=== PATIENT | male | born 1930 | race Caucasian/White ===

== ENCOUNTER → 2016-10-08 | Outpatient (CLI) | payer MEDICARE, OTHER ==
[~2016-10-08] MED LIST: ADV250INH INH; ALLE180T33 PO; ASPI1TAB PO; AZIT250T3 PO; BENZ100C5 PO; CEFU250T PO; CO Q1CAP PO; FLOM5CAP PO; FLUNPOW SC; GLIP5TAB8 PO; GLUCTAB6 PO; MELO15TA4 PO; METF1000 PO; MIDO10TA PO; MUCI600T34 PO; OMEP20CA3 PO; RANI150T PO; REST0.05 OU; SIMV10TA2 PO; SPIR25TA2 PO; SYMB80INH INH; ZINC50TA PO
--- NOTE | 2016-10-08 12:12 | REP ---
Chest x-ray: Two views. History: Abnormal findings of the lung jean. Comparison chest x-ray August 23, 2016. Left hemidiaphragm is elevated. There are several air-fluid levels in the left upper quadrant and left base. Two of these appear to be in the left pleural space consistent with air and fluid in the previously noted pleural fluid collection in the left base seen on CT study August 26, 2016. A catheter was passed into this collection after the CT study. The catheter is no longer apparent. There is pleural thickening surrounding the remainder of the left lung and there is considerable volume loss in the left hemithorax. The right lung remains clear. Pleural angles are sharp. Mild left mediastinal widening is again noted. Impression: Volume loss in the left hemithorax with two intrathoracic air-fluid levels in the left pleural space posteriorly. This may be post instrumentation air. There was a recent pleural drainage catheter in this space. Left mediastinal widening consistent with adenopathy again seen. Right lung remains clear. Signed by Tristin Nieves MD 10/08/2016 01:37 P
== END ==
LOC: M ADAMS 09:22
PROVIDERS: ATTEND Physician Assistant Medical
DX: R91.8 Other nonspecific abnormal finding of lung field (principal); J18.9 Pneumonia, unspecified organism; J90 Pleural effusion, not elsewhere classified

== ENCOUNTER → 2016-11-02 | Outpatient (CLI) | payer MEDICARE, OTHER ==
--- NOTE | 2016-11-02 12:33 | REP ---
CT STUDY OF THE CHEST WITHOUT CONTRAST: HISTORY: Nonspecific abnormal findings of the lung jean. Comparison chest CT study is from August 26, 2016. Comparison is also made with the March 22, 2016 prior study. The patient has a history of prostate malignancy. FINDINGS: Volume loss in the left hemithorax again seen with diffuse moderate to marked pleural rind of thickening encasing the left lung circumferentially. Some of this extends in the major fissure. There is compressive atelectasis extensively in the left lower lobe and lingula. There is a pleural fluid collection in a subpulmonic distribution in the left chest, and this contains several air-fluid levels today. Air-fluid levels were noted within this pleural fluid collection on chest x-ray from October 08, 2016. A chest x-ray from August 29, 2016 shows a percutaneous drainage catheter in this location. This is not present currently. This air may be post instrumentation air. The size of the cavity is essentially unchanged from the most recent prior CT study of August 26, 2016. The upper lobe opacity described in the report of the August 26, [address] study is much improved although there is still some opacity surrounding an air bronchogram in this location. Previously, this opacity measured 5.8 cm in greatest diameter. Currently, the residual opacity measures 1.7 cm. No other new pulmonary parenchymal opacity is seen. Scattered stable mediastinal lymph nodes are noted, unchanged. No bony destructive lesion is appreciated. IMPRESSION: Loculated hydropneumothorax left base with compressive atelectasis in the left lower lobe. The size of this cavity is unchanged. Air-fluid levels were noted on most recent chest x-ray and persist. This may be post instrumentation air. The left lung is encased with a rind of pleural thickening, question mesothelioma. Left upper lobe opacity is improved. No new infiltrate. Signed by Tristin Nieves MD 11/02/2016 12:53 P
== END ==
LOC: M RAD 11:02
PROVIDERS: ATTEND Internal Medicine Pulmonary Disease
DX: J93.9 Pneumothorax, unspecified (principal)

== ENCOUNTER → 2016-11-26 | Outpatient (CLI) | payer MEDICARE, OTHER | LOC: M ADAMS 15:12 | PROVIDERS: ATTEND Physician Assistant Medical | DX: M54.5 Low back pain (principal) ==

== ENCOUNTER → 2016-11-26 | Outpatient (CLI) | payer MEDICARE, OTHER ==
[~2016-11-26] MED LIST changes: +FERR325T3 PO; +TYLE1TAB5 PO; +VITMTA PO
--- NOTE | 2016-11-27 09:30 | REP ---
THORACIC SPINE, TWO VIEWS: HISTORY: Back pain. There is no acute fracture or subluxation. There are old compression fractures of the T10 and T12 vertebral bodies with minimal and mild height loss respectively. The intervertebral discs are normal in height. Osteophytes are present in mid and lower thoracic spine. IMPRESSION: Degenerative change as described above. Signed by David Alvarado MD 11/27/2016 09:33 A
--- NOTE | 2016-11-27 09:36 | REP ---
LUMBAR SPINE, SEVEN VIEWS: HISTORY: Back pain. There is no acute fracture. There are old compression fractures of the T10, T12 and L2 vertebral bodies. The lumbar intervertebral discs are decreased in height. Vacuum phenomenon is present at the L5-S1 level. These findings are consistent with disc degeneration. Osteophytes are present throughout the lumbar spine. There is narrowing of the L4-5 and L5-S1 facet joints with associated sclerosis. There are 3 mm of grade 1 spondylolisthesis of L4 on 5. IMPRESSION: Degenerative change as described above. Signed by David Alvarado MD 11/27/2016 09:39 A
== END ==
LOC: M ADAMS 15:39
PROVIDERS: ATTEND Physician Assistant Medical
DX: M43.16 Spondylolisthesis, lumbar region (principal)

== ENCOUNTER → 2016-12-10 | Outpatient (CLI) | payer MEDICARE, OTHER ==
--- NOTE | 2016-12-10 15:10 | REP ---
CHEST, TWO VIEWS: HISTORY: Cough. COMPARISON: 10/08/2016. There is loss of volume in the left hemithorax. Increased density is present in the left lower lobe consistent with atelectasis or infiltrate. A left-sided pleural effusion and/or pleural thickening are present. The right lung is clear. There has been resolution in the previously noted hydropneumothoraces. The bony structure is intact. IMPRESSION: 1. Left lower lobe atelectasis or infiltrate unchanged compared to the previous study. 2. Left side pleural thickening and/or pleural effusion unchanged compared to the previous study. There has been resolution to the previously noted hydropneumothoraces. Signed by David Alvarado MD 12/10/2016 03:34 P
== END ==
LOC: M ADAMS 14:29
PROVIDERS: ATTEND Physician Assistant Medical
DX: J98.8 Other specified respiratory disorders (principal); R05 Cough
CPT/HCPCS: 71020; 87070; 87077; 87186; 87205; G0463

== ENCOUNTER 2016-12-18 13:25 | Inpatient (IN) | payer MEDICARE, OTHER ==
[~2016-12-18] VITALS: Ht 172.7 cm; Wt 82.1 kg
[~2016-12-18 13:25] MED LIST changes: -FERR325T3 PO; -TYLE1TAB5 PO; -VITMTA PO
[2016-12-18] MEDS ORDERED: OMEP20CA3 PO (13:39)
[2016-12-18] MEDS ORDERED: METF1000 PO (13:39)
[2016-12-18] MEDS ORDERED: FERR325T3 PO (13:39)
--- NOTE | 2016-12-18 14:52 | REP ---
Clinical: Dyspnea and cough. Comparison: 12/10/2016. Findings: Large left pleural effusion with underlying atelectasis/consolidation again noted and similar to prior examination. Mediastinum and cardiac silhouette are incompletely evaluated due to overlying opacities. The right hemithorax appears well aerated and clear. Impression: Large left pleural effusion with atelectasis/consolidations similar to prior examination. Signed by Delfino Gonzáles MD 12/18/2016 02:44 P
[2016-12-18 15:21] LABS: BASO % 0.3 % (0.0-1.0); EOS % 0.2 % (0.0-3.0); LARGE UNSTAINED CELL # 0.1 K/mm3 (0.0-0.4); LARGE UNSTAINED CELL % 0.5 % (0.0-4.0); LYMPH # 0.3 K/mm3 (1.5-4.5); LYMPH % 2.5 % (24.0-44.0); MEAN CORPUSCULAR HEMOGLOBIN 27.4 pg (27.0-33.0); MEAN CORPUSCULAR VOLUME 85.7 fl (80.0-96.0); MONO # 1.2 K/mm3 (0.0-0.8); MONO % 10.4 % (0.0-5.0); NEUTROPHILS # 9.5 K/mm3 (1.8-7.7); NEUTROPHILS % 86.1 % (36.0-66.0); PLATELET COUNT, AUTOMATED 294 k/mm3 (150-450); RED CELL DISTRIBUTION WIDTH 14.2 % (11.5-14.5)
[2016-12-18 15:27] LABS: ALBUMIN 3.5 GM/DL (3.2-5.2); ALBUMIN/GLOBULIN RATIO 0.92 (1.00-1.93); ALKALINE PHOSPHATASE 163 U/L (45-117); ALT/SGPT 28 U/L (12-78); ANION GAP 6 MEQ/L (8-16); AST/SGOT 33 U/L (15-37); BILIRUBIN,DIRECT 0.5 MG/DL (0.0-0.2); BILIRUBIN,TOTAL 1.2 MG/DL (0.2-1.0); BLOOD UREA NITROGEN 21 MG/DL (7-18); CALCIUM LEVEL 8.7 MG/DL (8.8-10.2); CARBON DIOXIDE LEVEL 28 MEQ/L (21-32); CHLORIDE LEVEL 91 MEQ/L (98-107); CREATININE FOR GFR 1.21 MG/DL (0.70-1.30); GLOMERULAR FILTRATION RATE > 60.0 (>35); GLUCOSE, FASTING 191 MG/DL (83-110); SODIUM LEVEL 125 MEQ/L (136-145); TOTAL PROTEIN 7.3 GM/DL (6.4-8.2)
[2016-12-18 15:30] LABS: POTASSIUM SERUM 5.3 MEQ/L (3.5-5.1)
[2016-12-18] MEDS ORDERED: ISOVUE-370 76% 100ML VIAL (Q9967) As Ordered ONE (15:35)
--- NOTE | 2016-12-18 16:07 | REP ---
Clinical: Chest pain with dyspnea. Comparison: Chest CT without contrast dated 11/02/2016. Technique: Axial contrast enhanced images from the thoracic inlet to the upper abdomen using 100 ml Isovue 370 intravenous contrast material with multiplanar re-formations. Findings: Satisfactory enhancement of the pulmonary vasculature is achieved and no filling defects are identified to suggest pulmonary embolus. Diffuse irregular pleural thickening surrounds the entire left hemithorax measuring with a moderate loculated basilar effusion with associated collapse of the left lower lobe and areas of consolidation involving the left upper lobe. The right hemithorax is relatively well aerated although trace right basilar atelectasis cannot be excluded. Mediastinum demonstrates atherosclerotic changes to the thoracic aorta and coronary arteries without aortic aneurysm/dissection, cardiomegaly, or significant pericardial effusion. Musculoskeletal structures are intact. Impression: 1. No evidence for pulmonary embolus. 2. Extensive irregular pleural thickening involving the entire left hemithorax with moderate loculated basilar pleural effusion, consolidation / collapse of the left lower lobe and ill-defined areas of consolidation involving the right upper lobe. Findings appear relatively similar to 11/02/2016. Signed by Delfino Gonzáles MD 12/18/2016 03:58 P
[2016-12-18] MEDS ORDERED: ADV250INH INH (18:13)
[2016-12-18] MEDS ORDERED: VITMTA PO (18:13)
[2016-12-18] MEDS ORDERED: FLOM5CAP PO (18:13)
[2016-12-18] MEDS ORDERED: TYLE1TAB5 PO (18:14)
--- NOTE | 2016-12-18 18:18 | ECGEPIP ---
Stationary ECG Study [facility] - ED Test Date: 2016-12-18 Pat Name: TURNER JERONIMO Department: Room: - Gender: M [employer]ement Rubber: elmer : 1930 Requested By: THEODORA Miguel Order Number: [id number] Reading MD: Sergo Levine Measurements Intervals [place] Rate: 110 P: 28 VA: 212 QRS: -34 QRSD: 86 T: 0 QT: 311 QTc: 421 Interpretive Statements SINUS TACHYCARDIA WITH FIRST DEGREE AV BLOCK LEFT AXIS DEVIATION INC. RBBB ST ELEVATION ANTEROLATERALLY, POSSIBLE ACUTE INFARCT Electronically Signed On 12-18-2016 18:18:30 EDT by Sergo Levine
[2016-12-18] MEDS ORDERED: SODIUM CHLORIDE 0.9% 1000 ML IV ONE (19:15)
[2016-12-18] MEDS ORDERED: ACETAMINOPHEN TAB 650MG DOSE (2X325MG) PO PRN (19:30)
[2016-12-18] MEDS ORDERED: GLUCOSE 4 GM CHEW TABLET PO PRN (19:30)
[2016-12-18] MEDS ORDERED: IPRATROPIUM 0.5MG/ALBUTEROL 2.5MG INH SOL UD 3ML (DUONEB)(J7620) NEB PRN (19:30)
[2016-12-18] MEDS ORDERED: GLUCAGON FOR INJ 1 MG VIAL (J1610) SC PRN (19:30)
[2016-12-18] MEDS ORDERED: ONDANSETRON 4MG/2ML VIAL (J2405) IV PRN (19:30)
[2016-12-18] MEDS ORDERED: DEXTROSE 50% 50 ML SYRINGE IV PRN (19:30)
[2016-12-18 20:25] VITALS: BP 136/92
[2016-12-18] MEDS: HumaLOG INSULIN (NovoLOG) PER UNIT SC SCH (20:58)
[2016-12-18] MEDS: ADVAIR DISKUS 250/50 INH PWD INH SCH (21:00)
[2016-12-18] MEDS: OMEPRAZOLE 20 MG CAP PO SCH (21:07)
[2016-12-18] MEDS: DOCUSATE SODIUM 100 MG CAP PO SCH (21:07)
[2016-12-18] MEDS: SIMVASTATIN 10 MG TAB PO SCH (21:08)
[2016-12-18] MEDS: FERROUS SULFATE 325MG TAB PO SCH (21:08)
[2016-12-18] MEDS: LevoFLOXacin IV 500 MG in APPROPRIATE DILUENT 1 EA IV SCH (21:08)
[2016-12-18 21:15] VITALS: BP 132/82
--- NOTE | 2016-12-18 21:22 | HPEPDOC ---
General Date of Admission Dec 18, 2016 at 18:32 Primary Care Physician: KUSUM ACEVEDO PA-C Attending Physician: HUSSEIN COOPER DO Chief Complaint The patient is a 86-year-old male admitted with a reason for visit of Dyspnea. Source: Patient, Family Severity: Moderate Associated Symptoms: Shortness of breath, Dizziness History of Present Illness PRIMARY CARE PROVIDER: Kusum ROSE in [place] [facility] CHIEF COMPLAINT: SOB, pain in L arm and under L shoulder blade, dizziness HISTORY OF PRESENT ILLNESS: 86-year-old gentleman with past medical history significant for restrictive impairment, nonfunctional hemidiaphragm, history of pneumonia, diastolic congestive heart failure, a two-year history of chronic shortness of breath, recurrent left-sided pleural effusion, history of hemoptysis, history of prostate cancer, diabetes mellitus type 2, coronary artery disease, hypertension, COPD, presents to [facility] ED today for progressively worsening shortness of breath, and new onset left arm pain and left-sided back pain underneath the left shoulder blade. States shortness of breath has been present for around 2 years and is chronic. States he is always short of breath, but he has been getting worse over time. He does report a 10 day history of cough. He is expectorating yellow slimy sputum with no blood in it. In addition, patient reports last night, he began to have pain in his back underneath the left shoulder blade, stabbing in nature, and an 8/10 intensity with no radiation. He also reports that he began to have terrible left upper arm pain in the biceps area earlier in the day yesterday afternoon when having lunch which was also stabbing in nature with no radiation and a 7-8/10 in intensity. States he used to have arm pain in the shoulder before, but never in the arm like this. States arm pain was very scary. Patient's reports that patient normally takes Tylenol once in the morning/afternoon and twice in the evening before bedtime, but yesterday, the patient had taken one Tylenol at 6 PM last night, 2 Tylenol in the evening at 10 PM before bedtime, and woke up around 1:45 AM, and took 2 more Tylenol. states patient became confused and dizzy afterward. He normally does not take this much Tylenol. Although patient took extra Tylenol, he reports that this did not help his pain much. In addition, states that patient does not do a lot of walking around because he becomes short of breath on exertion. Also states that patient's blood pressure has been up since last time he saw his auditing clerk which was around 2 months ago. Patient is also admitted that he has gained around 12 pounds. Upon review of systems, patient denied fevers, chills, chest pain, abdominal pain, nausea, vomiting, diarrhea, constipation, hematochezia, hematuria, dizziness, runny nose, orthopnea, blurry vision, or weakness in the arms. Admits to paroxysmal nocturnal dyspnea, swelling left ankle and leg greater than the right leg, a dry throat, weakness in the legs, shortness of breath with exertion. 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 Diaz pulmonology. Restrictive impairment History of pneumonia Diastolic congestive heart failure Diabetes mellitus type 2 Coronary artery disease Hypertension Hypertensive heart disease Prostate cancer in 2009 status post treatment with radiation Fall with compression fracture of the back GERD Questionable hypercholesterolemia PAST SURGICAL HISTORY: Appendectomy Tonsillectomy and adenoidectomy Prostate biopsy with radiation seed implants of the prostate Bilateral upper tunnel release Total right knee replacement Cardiac catheterization for 2014 Right fifth finger tendon repair HOME MEDICATIONS: Aspirin 81 mg by mouth daily CoQ10 100 mg by mouth daily. Ferrous sulfate 300 mg twice a day Fluticasone propionate 50 g/actuation 2 sprays each nostril every night at bedtime Gabapentin 300 mg twice a day Glipizide ER 5 mg 1/2 tablet a day Glucosamine 1500 mg one by mouth daily Meloxicam 15 mg by mouth daily Metformin 1000 mg by mouth daily Omeprazole 20 mg by mouth twice a day Oxybutynin chloride ER 50 mg daily Ranitidine 150 mg by mouth twice a day Restasis 0.05% 1 drop both eyes twice a day Simvastatin 10 mg daily Tamsulosin 0.4 mg every day Zinc 50 mg daily Multivitamin daily one every day Midodrine 10 mg 1 tablet 3 times a day Summer 24-hour 180 mg 1 tablet daily Symbicort 80/4.5 g actuation 2 puffs twice a day Advair diskus 250/50 one puff twice a day ALLERGIES: No known seasonal or drug allergies SOCIAL HISTORY: Occupation: 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 Has been in the [place] where he did shore duty at [place] and went to the [place]. Has also traveled to [place], [place], [facility], and [place] in the past. Has no recent pets other than a kitten, which he bought for his last year. Has had dogs, cats, goats. Used to feed Cardinal birds through a bird feeder, but no physical contact with birds. He has traveled to the [facility] [place] [facility] [place] in the past. He has had no recent sick contacts and no recent travel. Patient has been a lifelong smoker nonsmoker. Denies alcohol use and denies illicit drug use. Drinks 2 cups of coffee daily. Lives at home and [place] with his . Used to live in [place] during the winter months. His , [place], and his son, Karlos , are his primary and secondary healthcare proxies. He does have a MOLST form completed with an active DNR. FAMILY HISTORY: Father at age 81 from a heart issue/possible myocardial infarction. Mother at the age of 101 of old age. One brother had colon cancer 2. Another brother had " a blood clot in his heart" which he had from after gallbladder surgery (cholecystectomy). One sister had an unknown blood cancer she from. Has 3 sons and 3 daughters who are healthy. CODE STATUS: DNR and has a MOLST form. REVIEW OF SYSTEMS: All other review of systems were negative except for those stated above in HPI. PHYSICAL EXAMINATION: Initial ED Vitals: T: 98.4 (later, 100.3), BP: 101/65, (later 91/57), RR:24, P :117 (later, 108), O2 Saturation: 94% RA General: Pleasant and cooperative elderly male who is resting in bed in mild distress. He does seem to look tachypneic seems to be using some accessory muscles to breathe. HEENT: Head: [normocephalic, atraumatic]. Eyes: [PERRL, sclera are nonicteric] , a little hard of hearing. Nose: [No external lesions] Throat: [no pharyngeal erythema or exudates, moist buccal mucosa], Neck: No cervical lymphadenopathy bilaterally. No thyromegaly. Respiratory: Decreased breath sounds in all lung jean left greater than right , crackles appreciated in the left middle and lower lung jean > than right lung jean, fibrotic rales appreciated in all lung jean. Cardiovascular: [regular rhythm, tachycardic rate with no murmurs, rubs or gallops.] Abdomen: [soft, nontender, nondistended, no hepatosplenomegaly appreciated. Bowel sounds present.] Extremities: Positive left ankle edema and left lower extremity edema greater than right Neurological: No focal neurologic deficits appreciated bilaterally. Integumentary: [skin free from rashes, lesions, abrasions] Vascular: +2 radial pulses bilaterally. LABORATORY DATA: Please see below. Laboratory blood cell count 11 Red blood cell count 3.91 Hemoglobin 10.7 Hematocrit 30.5 Sodium 125 Potassium 5.3 Chloride 91 CO2 28 Anion gap 6 BUN 21 Creatinine 1.21 GFR greater than 60 Fasting glucose 191 Lactic acid 1.7 Calcium 8.7 Total protein 7.3 Albumin 2.5 Total bilirubin 1.2 Direct bilirubin 0.5 Alkaline Phosphatase 163 Total creatinine kinase 75 CK-MB 2.9 Troponin I less than 0.02 MICROBIOLOGY: Influenza virus type a and B antigens: Negative Blood cultures pending Sputum Cultures and Gram stain, Sputum Cytology pending. ELECTROCARDIOGRAM: Sinus tachycardia with first-degree AV block at a ventricular rate of 110 bpm Marked left axis deviation Possible right ventricular conduction delay AL interval: 212 ms QRS duration: 86 ms QTC intraoral: [address] segment changes from prior EKG on 08/26/2016 RADIOLOGY: Portable chest x-ray: Shows a large left pleural effusion with atelectasis/ consolidations similar to prior exam on 12/10/2016. Chest CT Angio without contrast: No evidence for pulmonary embolus. Extensive irregular pleural thickening involving the entire left hemithorax with moderate loculated basilar pleural effusion, consolidation/collapse of the left lower lobe and ill defined areas of consolidation involving the right upper lobe. Findings appear similar to 11/02/[address] without contrast. ASSESSMENT: 86-year-old male presenting for progressively worsening dyspnea most likely secondary to chronic left nonfunctional hemidiaphragm with recurrent left lung chronic pleural effusion, atypical chest pain associated with left sided arm pain and left back pain underneath shoulder blade. In addition, presents with leukocytosis of 11, hemoglobin of 10.7, hematocrit 33.5, hyponatremia with sodium of 125, hyperkalemia with potassium of 5.3, hyperglycemia with fasting glucose of 191. First troponin negative 1. PLAN: Atypical chest pain associated with left arm pain and back pain beneath left shoulder: We'll admit to telemetry, monitor, and cycle troponins every 8 hours. First troponin was negative in the ED. EKG showed normal acute changes or significant ST wave changes from prior. We will follow daily BMPs, magnesium levels and CBCs. Shortness of breath secondary to chronic trapped lung/nonfunctional hemidiaphragm with recurrent left pleural effusion: We'll admit to PCU per Dr. Rose and monitor on telemetry. Have consulted Dr. Poncho Shearer cardiothoracic surgery for further evaluation and management. Appreciate his input. Hx of COPD/Possible COPD Exacerbation: We'll give nebulized DuoNeb's breathing treatments as per respiratory therapy, supplemental oxygen and titrate that to 88-92%, give bronchodilators. Add Acapella for expectorating secretions as per respiratory therapy. Antibiotic tx with IV Levaquin. We will follow up blood cultures and sputum cultures as well as sputum cytology. Hyponatremia: We'll give 500 mL bolus IV fluids and attempt to resolve low sodium level as well as soft blood pressure and emergency Department. IV fluids will also aid in hyperkalemia and diluting potassium. Monitor daily BMPs. Hyperkalemia: We'll hold off on adding Kayexalate since patient's potassium might correct after adding IV fluids. Monitor daily BMPs. History of CHF diastolic dysfunction: Monitor daily weights, I's and O's, attempt to keep potassium > 4 and magnesium > 2, replete electrolytes as necessary. Continue home medications. GERD: Continue home medication ranitidine and omeprazole Diabetes mellitus type 2: We'll discontinue metformin, glipizide, and hold other oral hypoglycemics. We'll add insulin sliding scale and before meals/at bedtime. We'll follow fingersticks before meals and at bedtime. We'll monitor daily BMPs. Hypertension: We'll continue home medications Coronary artery disease: Continue aspirin 81 mg daily, Continue simvastatin. Chronic anemia: Continue to follow CBCs daily. Continue ferrous sulfate 325 mg daily. Continue to monitor H&H. Continue home medications. DVT prophylaxis: Lovenox CODE STATUS: DNR, has MOLST form. Disposition: Admit as inpatient. Anticipate staying > 2 midnights. My preceptor for this patient encounter was Dr. Hussein Cooper, and was physically present in the building during the encounter and was fully available. As needed, all aspects of the patient interview, examination, medical decision making process, and medical care plan development were reviewed and approved by the preceptor. Preceptor is aware and concurs with the plan as stated in the body of this note and will attest to such by his/her cosignature. Home Medications Scheduled (Glucosamine Chondroitin) 1 Tab Tab 1 TAB PO DAILY (Reported) (Co Q-10) 100 Mg Cap 100 MG PO DAILY (Reported) (Restasis) 0.05 % Emu 1 DROP OU BID (Reported) Aspirin (Aspirin 81) 81 Mg Tab 81 MG PO QPM (Reported) Ferrous Sulfate (Ferrous Sulfate) 325 Mg Tab 325 MG PO BID (Reported) Fexofenadine Hydrochloride (Summer Allergy) 180 Mg Tab 180 MG PO DAILY ( Reported) Glipizide (Glipizide) 5 Mg Tab 2.5 MG PO DAILY (Reported) Meloxicam (Meloxicam) 15 Mg Tab 15 MG PO DAILY (Reported) Metformin Hydrochloride (Metformin HCl) 1,000 Mg Tab 1,000 MG PO BID (Reported ) Midodrine HCl (Midodrine HCl) 10 Mg Tab 10 MG PO TID (Reported) Multivitamins *[facility] STOCKED* (Thera M Plus *[facility] STOCKED*) 1 Tab Tab 1 TAB PO DAILY (Reported) Omeprazole (Omeprazole) 20 Mg Cap 20 MG PO BID (Reported) Ranitidine HCl (Ranitidine HCl) 150 Mg Tab 1 TAB PO DAILY (Reported) Salmeterol/Fluticasone (Advair Diskus 250-50 Mcg/Dose) 14 Puff/Inhaler Aerp 1 PUFF INH BID (Reported) Simvastatin (Simvastatin) 10 Mg Tab 10 MG PO QHS (Reported) Spironolactone (Spironolactone) 25 Mg Tab 12.5 MG PO DAILY (Reported) pt states forgets to take everyday, did not take today 12/18 Tamsulosin Hydrochloride (Flomax) 0.4 Mg Cap 1 CAP PO DAILY (Reported) once daily 1/2 hour following the same meal each day Zinc (Zinc) 50 Mg Tab 50 MG PO DAILY (Reported) Scheduled PRN (Tylenol Pm Extra Strength 500-25 mg) 1 Tab Tab 2 TAB PO QHS PRN PRN SLEEP ( Reported) Allergies Coded Allergies: No Known Allergies (Unverified , 03/20/16) Vital Signs As above. Laboratory Data Labs 24H Laboratory Tests 2 12/18/16 14:52: Aspartate Amino Transf (AST/SGOT) 33, Alanine Aminotransferase (ALT/SGPT) 28, Alkaline Phosphatase 163H, Total Bilirubin 1.2H, Direct Bilirubin 0.5H, Albumin 3.5, Albumin/Globulin Ratio 0.92L, Anion Gap 6L, White Blood Count 11.0H, Red Blood Count 3.91L, Hemoglobin 10.7L, Hematocrit 33.5L, Mean Corpuscular Volume 85.7, Mean Corpuscular Hemoglobin 27.4, Mean Corpuscular Hemoglobin Concent 32.0 , Red Cell Distribution Width 14.2, Platelet Count 294, Neutrophils (%) (Auto) 86.1H, Lymphocytes (%) (Auto) 2.5L, Monocytes (%) (Auto) 10.4H, Eosinophils (%) (Auto) 0.2, Basophils (%) (Auto) 0.3, Neutrophils # (Auto) 9.5H, Lymphocytes # ( Auto) 0.3L, Monocytes # (Auto) 1.2H, Eosinophils # (Auto) 0.0, Basophils # (Auto ) 0.0, Calcium Level 8.7L, Creatine Kinase MB 2.9, Creatine Kinase MB Relative Index 3.86, Glomerular Filtration Rate > 60.0, Lactic Acid Level 1.7, Large Unclassified Cells # 0.1, Large Unclassified Cells % 0.5, Total Creatine Kinase 75, Total Protein 7.3, Troponin I < 0.02 12/18/16 19:49: Creatine Kinase MB 2.4, Creatine Kinase MB Relative Index 3.69, Total Creatine Kinase 65, Troponin I < 0.02 12/18/16 20:55: Bedside Glucose (Misc Panel) 176H CBC/BMP Laboratory Tests 12/18/16 14:52 Red Blood Count 3.91 L, Mean Corpuscular Volume 85.7, Mean Corpuscular Hemoglobin 27.4, Mean Corpuscular Hemoglobin Concent 32.0, Red Cell Distribution Width 14.2, Neutrophils (%) (Auto) 86.1 H, Lymphocytes (%) (Auto) 2.5 L, Monocytes (%) (Auto) 10.4 H, Eosinophils (%) (Auto) 0.2, Basophils (%) ( Auto) 0.3, Neutrophils # (Auto) 9.5 H, Lymphocytes # (Auto) 0.3 L, Monocytes # ( Auto) 1.2 H, Eosinophils # (Auto) 0.0, Basophils # (Auto) 0.0 Microbiology Microbiology 12/18/16 Blood Culture, Received Pending 12/18/16 Gram Stain, Received Pending 12/18/16 Sputum Culture, Received Pending 12/18/16 Influenza Virus Type A Antigen - Final, Complete 12/18/16 Influenza Virus Type B Antigen - Final, Complete Plan / VTE VTE Prophylaxis Ordered?: Yes (Lovenox, Renal Fx intact) Plan Plan Attending Note: Discussed with Resident. Patient examined independently and agree with treatment as outlined. TC CADE OGME-1 Dec 18, 2016 21:22 HUSSEIN COOPER DO Dec 19, 2016 18:36
[2016-12-18] MEDS: IPRATROPIUM 0.5MG/ALBUTEROL 2.5MG INH SOL UD 3ML (DUONEB)(J7620) NEB SCH (23:41)
[2016-12-19] VITALS: BP 115/79
[2016-12-19 04:00] VITALS: BP 131/90
[2016-12-19 04:15] LABS: MEAN CORPUSCULAR HEMOGLOBIN 27.2 pg (27.0-33.0); MEAN CORPUSCULAR HGB CONC 32.4 g/dl (32.0-36.5); MEAN CORPUSCULAR VOLUME 83.7 fl (80.0-96.0); RED CELL DISTRIBUTION WIDTH 14.5 % (11.5-14.5); WHITE BLOOD COUNT 7.3 K/mm3 (4.0-10.0)
[2016-12-19 04:40] LABS: ANION GAP 10 MEQ/L (8-16); BLOOD UREA NITROGEN 21 MG/DL (7-18); CALCIUM LEVEL 8.1 MG/DL (8.8-10.2); CARBON DIOXIDE LEVEL 26 MEQ/L (21-32); CHLORIDE LEVEL 92 MEQ/L (98-107); CREATININE FOR GFR 1.17 MG/DL (0.70-1.30); GLOMERULAR FILTRATION RATE > 60.0 (>35); GLUCOSE, FASTING 144 MG/DL (83-110); MAGNESIUM LEVEL 1.7 MG/DL (1.8-2.4); POTASSIUM SERUM 4.7 MEQ/L (3.5-5.1); SODIUM LEVEL 128 MEQ/L (136-145)
[2016-12-19] MEDS: TAMSULOSIN 0.4 MG CAP PO SCH (07:52)
[2016-12-19] MEDS: FAMOTIDINE 20 MG TAB PO SCH (07:52)
[2016-12-19] MEDS: OMEPRAZOLE 20 MG CAP PO SCH ×2 (07:52→20:57)
[2016-12-19] MEDS: MIDODRINE 5 MG TAB PO SCH ×3 (07:53→15:57)
[2016-12-19] MEDS: FEXOFENADINE 60 MG TAB PO SCH (07:53)
[2016-12-19] MEDS: FERROUS SULFATE 325MG TAB PO SCH ×2 (07:53→20:57)
[2016-12-19] MEDS: ASPIRIN 81 MG ENTERIC TAB PO SCH (07:53)
[2016-12-19] MEDS: DOCUSATE SODIUM 100 MG CAP PO SCH ×2 (07:53→20:57)
[2016-12-19] MEDS: MULTIVITAMINS/MINERALS THERAP 1 TAB PO SCH (07:53)
[2016-12-19] MEDS: ENOXAPARIN 30 MG/0.3 ML SYR (J1650) SC SCH (07:54)
[2016-12-19] MEDS: HumaLOG INSULIN (NovoLOG) PER UNIT SC SCH ×4 (07:54→21:00)
[2016-12-19 08:00] VITALS: BP 124/81
[2016-12-19] MEDS: IPRATROPIUM 0.5MG/ALBUTEROL 2.5MG INH SOL UD 3ML (DUONEB)(J7620) NEB SCH ×3 (08:00→23:56)
[2016-12-19] MEDS: ADVAIR DISKUS 250/50 INH PWD INH SCH ×2 (08:19→20:10)
--- NOTE | 2016-12-19 08:59 | IPNPDOC ---
Subjective Date Seen The patient was seen on 12/19/16. Subjective Chief Complaint/HPI The patient is a 86-year-old male admitted with a reason for visit of Dyspnea. Events since last encounter Pt states he is feeling better today. Still with SOB. Denies CP, Abd pain. Constitutional: Denies: Chills, Fever Pulmonary: Reports: Cough, Dyspnea Cardiovascular: Denies: Chest Pain, Palpitations Gastrointestinal: Denies: Abdominal Pain, Nausea, Vomiting Objective Physical Examination General Exam: Positive: Alert, No Acute Distress Neck Exam: Positive: Supple, Negative: JVD Chest Exam: Positive: Diminished (Left > Right), Rales, Wheezing Heart Exam: Positive: Rate Normal, Regular Rhythm Abdomen Exam: Positive: Normal bowel sounds, Soft, Negative: Tenderness Extremity Exam: Negative: Edema Assessment /Plan Problems (1) Dyspnea Status: Acute Problem Specific Plan: Consult Specialist, Monitor Clinically Problem Text: 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 Dr Shearer consulted. Cardiac enzymes negative. Getting nebs for COPD. Started on IV Levaquin. 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 Dr Shearer consulted. (3) COPD (chronic obstructive pulmonary disease) Status: Acute Problem Specific Plan: Monitor Clinically Problem Text: Getting nebs for COPD. On Advair. (4) Hyponatremia Status: Acute Problem Specific Plan: Monitor Clinically, Repeat Labs Problem Text: Na 128 (125 yesterday). Received fluid bolus at admission. (5) Hyperkalemia Status: Acute Problem Specific Plan: Monitor Clinically, Repeat Labs Problem Text: K 4.7 today. (6) Hypomagnesemia Status: Acute Problem Specific Plan: Monitor Clinically, Repeat Labs Problem Text: Mag 1.7. Give replacement. (7) CHF (congestive heart failure) Status: Chronic Problem Specific Plan: Monitor Clinically, Repeat Labs Problem Text: Appears compensated. Monitor fluid status. (8) GERD (gastroesophageal reflux disease) Status: Chronic Problem Specific Plan: Monitor Clinically Problem Text: On prilosec. (9) CAD (coronary artery disease) Status: Chronic Problem Specific Plan: Monitor Clinically Problem Text: On Aspirin and statin. (10) Anemia Status: Acute Problem Specific Plan: Monitor Clinically, Repeat Labs Problem Text: Hgb 9.7 today (was 10.7 yesterday). Did receive fluids. On Ferrous sulfate. (11) Diabetes mellitus type 2 in nonobese Status: Chronic Problem Specific Plan: Monitor Clinically, Repeat Labs Problem Text: On SSI. Outpt metformin, glipizide held. (12) Hypertension Status: Chronic Problem Specific Plan: Monitor Clinically Plan/VTE VTE Prophylaxis Ordered?: Yes (Lovenox) VS, I&O, 24H, Fishbone Vital Signs/I&O Vital Signs Date Time Temp Pulse Resp B/P Pulse Ox O2 Delivery O2 Flow Rate FiO2 12/19/16 08:00 98.9 118 20 124/81 94 Room Air I&O- Last 24 Hours up to 6 AM 12/19/16 06:00 Intake Total 800 ml Output Total 225 ml Balance 575 ml Laboratory Data 24H LABS Laboratory Tests 2 12/18/16 14:52: Aspartate Amino Transf (AST/SGOT) 33, Alanine Aminotransferase (ALT/SGPT) 28, Alkaline Phosphatase 163H, Total Bilirubin 1.2H, Direct Bilirubin 0.5H, Albumin 3.5, Albumin/Globulin Ratio 0.92L, Anion Gap 6L, White Blood Count 11.0H, Red Blood Count 3.91L, Hemoglobin 10.7L, Hematocrit 33.5L, Mean Corpuscular Volume 85.7, Mean Corpuscular Hemoglobin 27.4, Mean Corpuscular Hemoglobin Concent 32.0 , Red Cell Distribution Width 14.2, Platelet Count 294, Neutrophils (%) (Auto) 86.1H, Lymphocytes (%) (Auto) 2.5L, Monocytes (%) (Auto) 10.4H, Eosinophils (%) (Auto) 0.2, Basophils (%) (Auto) 0.3, Neutrophils # (Auto) 9.5H, Lymphocytes # ( Auto) 0.3L, Monocytes # (Auto) 1.2H, Eosinophils # (Auto) 0.0, Basophils # (Auto ) 0.0, Calcium Level 8.7L, Creatine Kinase MB 2.9, Creatine Kinase MB Relative Index 3.86, Glomerular Filtration Rate > 60.0, Lactic Acid Level 1.7, Large Unclassified Cells # 0.1, Large Unclassified Cells % 0.5, Total Creatine Kinase 75, Total Protein 7.3, Troponin I < 0.02 12/18/16 19:49: Creatine Kinase MB 2.4, Creatine Kinase MB Relative Index 3.69, Total Creatine Kinase 65, Troponin I < 0.02 12/18/16 20:55: Bedside Glucose (Misc Panel) 176H 12/19/16 03:58: Anion Gap 10, Calcium Level 8.1L, Creatine Kinase MB 2.0, Creatine Kinase MB Relative Index 3.38, Glomerular Filtration Rate > 60.0, Total Creatine Kinase 59 , Troponin I 0.02, Blood Urea Nitrogen 21H, Creatinine 1.17, Sodium Level 128L, Potassium Level 4.7, Chloride Level 92L, Carbon Dioxide Level 26, Magnesium Level 1.7L 12/19/16 07:37: Bedside Glucose (Misc Panel) 125H CBC/BMP Laboratory Tests 12/18/16 14:52 Red Blood Count 3.91 L, Mean Corpuscular Volume 85.7, Mean Corpuscular Hemoglobin 27.4, Mean Corpuscular Hemoglobin Concent 32.0, Red Cell Distribution Width 14.2, Neutrophils (%) (Auto) 86.1 H, Lymphocytes (%) (Auto) 2.5 L, Monocytes (%) (Auto) 10.4 H, Eosinophils (%) (Auto) 0.2, Basophils (%) ( Auto) 0.3, Neutrophils # (Auto) 9.5 H, Lymphocytes # (Auto) 0.3 L, Monocytes # ( Auto) 1.2 H, Eosinophils # (Auto) 0.0, Basophils # (Auto) 0.0 12/19/16 03:58 Red Blood Count 3.58 L, Mean Corpuscular Volume 83.7, Mean Corpuscular Hemoglobin 27.2, Mean Corpuscular Hemoglobin Concent 32.4, Red Cell Distribution Width 14.5, Calcium Level 8.1 L, Total Creatine Kinase 59 Microbiology Microbiology 12/18/16 Blood Culture, Received Pending 12/18/16 Gram Stain, Received Pending 12/18/16 Sputum Culture, Received Pending 12/18/16 Influenza Virus Type A Antigen - Final, Complete 12/18/16 Influenza Virus Type B Antigen - Final, Complete Jude Hammonds Dec 19, 2016 08:59
[2016-12-19] MEDS ORDERED: MAG SULF 1GM/100ML (MAG RUN) 1 GM in APPROPRIATE DILUENT 1 EA IV ONE (09:00)
--- NOTE | 2016-12-19 10:07 | REP ---
Clinical: Pleural effusion. Technique: PA and lateral. Comparison: 12/18/2016. Findings: Continued evidence for diffuse pleural thickening of the left hemithorax with moderate to large left pleural effusion and underlying consolidations which are relatively stable compared to prior examination. The right hemithorax appears clear. Skeletal structures intact. Impression: Diffuse pleural thickening with moderate to large left pleural effusion and underlying consolidations unchanged. Signed by Delfino Gonzáles MD 12/19/2016 09:59 A
[2016-12-19 12:00] VITALS: BP 127/81
[2016-12-19 16:00] VITALS: BP 147/74
--- NOTE | 2016-12-19 18:24 | CR ---
DATE OF CONSULTATION: 12/19/2016 REASON FOR CONSULTATION: The patient is seen at the request of both the emergency room and the hospitalist service, Dr. Chawla, for recurrent pleural effusion and shortness of breath. HISTORY OF PRESENT ILLNESS: The patient is an 86-year-old white male who was last seen in August with shortness of breath and a pleural effusion. Accompanying this shortness of breath and pleural effusion was hemoptysis with a chronic cough, which came in paroxysms. At the time, it was noted that he coughs every time he swallowed water. He was having chest pain at that time along his left axilla and along his left chest wall. At that time it was a sharp pain, which hurt with taking a deep breath. He has been short of breath for at least 2 years. He was drained of fluid with a pigtail catheter. 200 mL of fluid was drained in x-ray. The cytology and cell blocks were negative for malignancy. The fluid came back with an LDH of 104 with a serum LDH of 160, making it mildly exudative with a glucose of 149 and with less than 20 nucleated cells. Therefore, it looked as if it represented a mildly exudative or perhaps transudative effusion. After the effusion was drained, the lung did not reexpand to the chest wall and looked to be entrapped. He was also noted to have pleural thickening throughout the remainder of his pleura, both on the chest wall and mediastinum. Over the last 3 to 4 days, he has again become progressively short of breath. He also had increased pain along his chest wall, but this is not exacerbated with taking a deep breath. He does not have orthopnea or paroxysmal nocturnal dyspnea, but does occasionally sleep in a recliner secondary to chronic back pain. His sleeping in a recliner is not secondary to shortness of breath. He has had an exacerbation of his cough with yellow-green sputum production but no blood. At home, he has had no fever, chills or sweats, and he has been able to maintain his weight. He does not complain of dysphagia and he now denies choking on water when he swallows. PAST MEDICAL ILLNESSES: 1. Chronic obstructive pulmonary disease (COPD). 2. Diabetes. 3. Diastolic congestive heart failure (CHF). 4. Coronary artery disease. 5. Hypertension. 6. Compression fractures of the back after falling off a combine in the remote past. 7. Gastroesophageal reflux disease (GERD). PAST SURGERIES: 1. Appendectomy in the remote past. 2. Knee replacement. 3. Bilateral carpal tunnel. ALLERGIES: None. MEDICATIONS AT HOME: - aspirin 81 mg daily - ferrous sulfate 325 mg daily - fluconazole two sprays in each nostril at night - gabapentin 300 mg twice a day - glipizide ER 2.5 mg daily - glucosamine 1500 mg daily - meloxicam 15 mg daily - metformin 1000 mg daily - omeprazole 20 mg twice a day - oxybutynin ER 50 mg daily - ranitidine 150 mg twice a day - Restasis one drop both eyes twice a day - simvastatin 10 mg daily - tamsulosin 0.4 mg daily - zinc 50 mg daily - multivitamin one daily - midodrine 10 mg three times a day - Summer 180 mg daily - Symbicort 84.5 mg two puffs twice a day - Advair Diskus 250/50 one puff twice a day ALLERGIES: None. OCCUPATIONAL HISTORY: Was a [place]. He denies asbestos exposure. 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 He does not think that he was exposed to asbestos. TRAVEL HISTORY: He has been to [place], [place] and [place]. He has positive travel history to the [facility] and [facility] in the remote past. He has one cat at home. No dogs or birds presently. HABITS: Does not and has not smoked. No alcohol use and no illicit drugs. FAMILY HISTORY: Father at 81 from myocardial infarction and mother at 101 of "old age." REVIEW OF SYSTEMS: CONSTITUTIONAL: See history of present illness. EYES: Without diplopia. Without transmonocular blindness. Without prior jaundice. NOSE: Without epistaxis. MOUTH: Has his own teeth. PULMONARY: See history of present illness. CARDIAC: See history of present illness. Does note peripheral edema but no orthopnea or paroxysmal nocturnal dyspnea. No prior history of myocardial infarction. There is no intermittent claudication. GASTROINTESTINAL: Without nausea, vomiting, diarrhea, constipation, melena, hematochezia, hematemesis or abdominal pain. GENITOURINARY: Without dysuria or hematuria. Without renal stones. NEUROLOGIC: Without paresthesias, paralyses or prior seizures. ENDOCRINE: Without diabetes. Without thyroid disease. HEMATOLOGIC: Without prolonged bleeding times. LYMPHATICS: Without lumps or bumps in the neck, axillae or groin noted. PSYCHIATRIC: Without pathological anxieties, depression, or psychoses. PHYSICAL EXAMINATION: Well developed, well nourished, white male in no acute distress. Sitting comfortably at the bedside. VITAL SIGNS: His temperature is 98.8, it was 100.3 yesterday afternoon. Respiratory rate is 16 to 22 without the use of accessory muscles. Heart rate is 114 and in a sinus rhythm. He is 92% saturated on room air and his blood pressure is 131/90. EYES: Pupils are equal and reactive to light. Extraocular muscles intact. Sclerae nonicteric. Mouth shows mucous membranes to be pink and moist. Lips and commissures without lesions. There is no thrush. NOSE: Without deformity. HEAD: Normocephalic. NECK: Supple. There is no jugular venous distention (JVD). No subcutaneous emphysema. Trachea is midline. There are no carotid bruits. He has 2+ carotid upstrokes. CARDIAC EXAM: Without murmurs, clicks, gallops or rubs. I cannot feel his PMI. S1, S2 are normal. ABDOMEN: Soft, nontender. Bowel sounds positive. There is no hepatomegaly. No costovertebral angle tenderness. LUNGS: Show markedly decreased breath sounds with expiratory wheezing in the left lung. Right lung also shows some expiratory wheezing. Percussion note is full to the diaphragm on the right and dull half way up on the left. NEUROLOGIC: Shows II through XII intact. Gross motor and gross sensation intact. Gait is not tested. PSYCHIATRIC: Shows him to be awake, alert, oriented times three with appropriate mood and affect and conversational. His white count is 7.3, down from 11.0 yesterday. Hemoglobin and hematocrit are 9.7 and 30.0 with a platelet count of 25. Differential yesterday in the emergency room showed 86% neutrophils, 2% lymphocytes, 10% monocytes. There were no immature forms. No toxic granulations. Electrolytes today are normal with a BUN and creatinine of 23 and 1.23. Glucose of 142. Calcium is 9.1 with a corresponding albumin of 3.7. His chest CT done yesterday in the emergency room shows uniform thickening of the left pleura from the cupula down to the diaphragm. Underneath this uniform thickening is some pleural fluid at the base. There is compression atelectasis or a tumor mass in the left lower lobe. I suspect this is more compression atelectasis. I do not see any significant mediastinal lymphadenopathy. The pleural rind measures approximately 1.5 cm. It is applied to the both the mediastinal pleural and chest wall pleura. Adrenals have a normal configuration and I see no liver lesions. I do not see emphysematous changes in his remaining lung, particularly on the right side. IMPRESSION: 1. Recurrent pleural effusion. 2. Lung entrapment. 3. Uniformly thickened pleura, including the mediastinal and the chest wall pleural. 4. Diabetes. 5. Hypertension. 6. Chronic obstructive pulmonary disease (COPD), but which is probably asthma. 7. Diastolic congestive heart failure (CHF). PLAN/DISCUSSION: Draining his pleural fluid at the base will not be helpful as the lung is entrapped and it is going to come back. We already have analysis of it. However, his thickened pleural really does need to be addressed. He does not give any strong positive history of asbestos exposure but this looks for all the world like asbestosis, including the thickened pleura and pain and of course shortness of breath secondary to restriction. I therefore asked x-ray to undertake a needle biopsy tangentially of the thickened pleura. If that does not come to fruition, I will be forced to take him to the operating room where I will do an open pleural biopsy, which should be a rather straight forward procedure. My prejudice is to start with the easy and least invasive and that would be a needle biopsy by radiology.
[2016-12-19 20:00] VITALS: BP 127/93
[2016-12-19] MEDS: LevoFLOXacin IV 500 MG in APPROPRIATE DILUENT 1 EA IV SCH (20:57)
[2016-12-19] MEDS: SIMVASTATIN 10 MG TAB PO SCH (20:57)
[2016-12-19 20:59] LABS: INR 1.24
[2016-12-20] VITALS (10 sets, daily range): BP systolic 108–138; BP diastolic 71–93
[2016-12-20 05:06] LABS: MEAN CORPUSCULAR HEMOGLOBIN 27.2 pg (27.0-33.0); MEAN CORPUSCULAR HGB CONC 32.1 g/dl (32.0-36.5); MEAN CORPUSCULAR VOLUME 84.9 fl (80.0-96.0); RED CELL DISTRIBUTION WIDTH 14.3 % (11.5-14.5)
[2016-12-20 05:31] LABS: ANION GAP 7 MEQ/L (8-16); BLOOD UREA NITROGEN 21 MG/DL (7-18); CALCIUM LEVEL 8.5 MG/DL (8.8-10.2); CARBON DIOXIDE LEVEL 28 MEQ/L (21-32); CHLORIDE LEVEL 92 MEQ/L (98-107); CREATININE FOR GFR 1.16 MG/DL (0.70-1.30); GLOMERULAR FILTRATION RATE > 60.0 (>35); GLUCOSE, FASTING 172 MG/DL (83-110); MAGNESIUM LEVEL 1.9 MG/DL (1.8-2.4); POTASSIUM SERUM 4.3 MEQ/L (3.5-5.1); SODIUM LEVEL 127 MEQ/L (136-145)
[2016-12-20] MEDS: HumaLOG INSULIN (NovoLOG) PER UNIT SC SCH ×4 (07:30→20:46)
[2016-12-20] MEDS: IPRATROPIUM 0.5MG/ALBUTEROL 2.5MG INH SOL UD 3ML (DUONEB)(J7620) NEB SCH ×3 (08:00→23:59)
[2016-12-20] MEDS: ADVAIR DISKUS 250/50 INH PWD INH SCH ×2 (08:09→19:25)
[2016-12-20] MEDS: ENOXAPARIN 30 MG/0.3 ML SYR (J1650) SC SCH (09:00)
[2016-12-20] MEDS: ASPIRIN 81 MG ENTERIC TAB PO SCH (09:00)
[2016-12-20] MEDS: FERROUS SULFATE 325MG TAB PO SCH ×2 (09:05→20:36)
[2016-12-20] MEDS: DOCUSATE SODIUM 100 MG CAP PO SCH ×2 (09:05→20:36)
[2016-12-20] MEDS: MIDODRINE 5 MG TAB PO SCH ×3 (09:05→16:55)
[2016-12-20] MEDS: MULTIVITAMINS/MINERALS THERAP 1 TAB PO SCH (09:05)
[2016-12-20] MEDS: OMEPRAZOLE 20 MG CAP PO SCH ×2 (09:06→20:36)
[2016-12-20] MEDS: FAMOTIDINE 20 MG TAB PO SCH (09:06)
[2016-12-20] MEDS: FEXOFENADINE 60 MG TAB PO SCH (09:06)
[2016-12-20] MEDS: TAMSULOSIN 0.4 MG CAP PO SCH (09:06)
--- NOTE | 2016-12-20 09:13 | IPNPDOC ---
Subjective Date Seen The patient was seen on 12/20/16. Subjective Chief Complaint/HPI The patient is a 86-year-old male admitted with a reason for visit of Dyspnea. Events since last encounter Pt states he is feeling better. States breathing is better. Denies CP, Abd pain. Constitutional: Denies: Chills, Fever Pulmonary: Reports: Dyspnea Cardiovascular: Denies: Chest Pain Gastrointestinal: Denies: Abdominal Pain, Nausea, Vomiting Objective Physical Examination General Exam: Positive: Alert, No Acute Distress Neck Exam: Positive: Supple, Negative: JVD Chest Exam: Positive: Diminished (Left > Right), Rales, Wheezing Heart Exam: Positive: Rate Normal, Regular Rhythm Abdomen Exam: Positive: Normal bowel sounds, Soft, Negative: Tenderness Extremity Exam: Negative: Edema Assessment /Plan Problems (1) Dyspnea Status: Acute Problem Specific Plan: Consult Specialist, Monitor Clinically Problem Text: 12/20 - Dr Shearer following. He notes that draining his pleural fluid at the base will not be helpful as the lung is entrapped and it is going to come back. Dr Shearer is concerned about asbestosis, with the thickened pleura and pain and shortness of breath secondary to restriction. He has ordered needle biopsy of the thickened pleura, and is considering open pleural biopsy. 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 Dr Shearer consulted. Cardiac enzymes negative. Getting nebs for COPD. Started on IV Levaquin. (2) Pleural effusion Status: Chronic Problem Specific Plan: Consult Specialist, Monitor Clinically Problem Text: 12/20 - Dr Shearer following. He notes that draining his pleural fluid at the base will not be helpful as the lung is entrapped and it is going to come back. Dr Shearer is concerned about asbestosis, with the thickened pleura and pain and shortness of breath secondary to restriction. He has ordered needle biopsy of the thickened pleura, and is considering open pleural biopsy. 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 Dr Shearer consulted. (3) COPD (chronic obstructive pulmonary disease) Status: Acute Problem Specific Plan: Monitor Clinically Problem Text: Getting nebs for COPD. On Advair. (4) Hyponatremia Status: Acute Problem Specific Plan: Monitor Clinically, Repeat Labs Problem Text: 12/20 - Na 127. Check urine and serum osmo. 12/19 - Na 128 (125 yesterday). Received fluid bolus at admission. (5) Hyperkalemia Status: Acute Problem Specific Plan: Monitor Clinically, Repeat Labs Problem Text: 12/20 - K 4.3. 12/19 - K 4.7 today. (6) Hypomagnesemia Status: Acute Problem Specific Plan: Monitor Clinically, Repeat Labs Problem Text: 12/20 - Mag 1.9. 12/19 - Mag 1.7. Give replacement. (7) CHF (congestive heart failure) Status: Chronic Problem Specific Plan: Monitor Clinically, Repeat Labs Problem Text: Appears compensated. Monitor fluid status. (8) GERD (gastroesophageal reflux disease) Status: Chronic Problem Specific Plan: Monitor Clinically Problem Text: On prilosec. (9) CAD (coronary artery disease) Status: Chronic Problem Specific Plan: Monitor Clinically Problem Text: On Aspirin and statin. (10) Anemia Status: Acute Problem Specific Plan: Monitor Clinically, Repeat Labs Problem Text: 12/20 - Hgb 10.4. 12/19 - Hgb 9.7 today (was 10.7 yesterday). Did receive fluids. On Ferrous sulfate. (11) Diabetes mellitus type 2 in nonobese Status: Chronic Problem Specific Plan: Monitor Clinically, Repeat Labs Problem Text: On SSI. Outpt metformin, glipizide held. (12) Hypertension Status: Chronic Problem Specific Plan: Monitor Clinically Plan/VTE VTE Prophylaxis Ordered?: Yes (Lovenox) VS, I&O, 24H, Fishbone Vital Signs/I&O Vital Signs Date Time Temp Pulse Resp B/P Pulse Ox O2 Delivery O2 Flow Rate FiO2 12/20/16 08:00 98.6 113 22 126/79 95 12/20/16 04:00 Room Air I&O- Last 24 Hours up to 6 AM 12/20/16 06:00 Intake Total 1075 ml Output Total 1415 ml Balance -340 ml Laboratory Data 24H LABS Laboratory Tests 2 12/19/16 11:30: Bedside Glucose (Misc Panel) 151H 12/19/16 12:01: Creatine Kinase MB 3.5, Creatine Kinase MB Relative Index 5.22H, Total Creatine Kinase 67, Troponin I 0.06# 12/19/16 16:45: Bedside Glucose (Misc Panel) 201H 12/19/16 20:46: Prothromb Time International Ratio 1.24, Prothrombin Time 15.7H 12/19/16 20:52: Bedside Glucose (Misc Panel) 108 12/20/16 04:41: Anion Gap 7L, Blood Urea Nitrogen 21H, Creatinine 1.16, Sodium Level 127L, Potassium Level 4.3, Chloride Level 92L, Carbon Dioxide Level 28, Calcium Level 8.5L, Glomerular Filtration Rate > 60.0, Magnesium Level 1.9 CBC/BMP Laboratory Tests 12/20/16 04:41 Calcium Level 8.5 L, Red Blood Count 3.82 L, Mean Corpuscular Volume 84.9, Mean Corpuscular Hemoglobin 27.2, Mean Corpuscular Hemoglobin Concent 32.1, Red Cell Distribution Width 14.3 Microbiology Microbiology 12/18/16 Blood Culture - Preliminary, Resulted No growth after 24 hours . All specim... 12/18/16 Gram Stain - Final, Resulted 12/18/16 Sputum Culture, Resulted Pending 12/18/16 Influenza Virus Type A Antigen - Final, Complete 12/18/16 Influenza Virus Type B Antigen - Final, Complete Jude Hammonds Dec 20, 2016 09:13
[2016-12-20] MEDS ORDERED: LIDOCAINE 1% MDV 20ML VIAL As Ordered ONE (11:34)
--- NOTE | 2016-12-20 15:27 | REP ---
POST-BIOPSY CHEST X-RAY PA AND LATERAL: 12/20/2016. Comparison chest x-ray 12/19/2016, CT chest 12/18/2016. Clinical history: Status post left upper chest pleural transthoracic needle biopsy. There is no visible pneumothorax on this excretory chest. Circumferential pleural thickening or mass noted surrounding the entire left hemithorax. Loss of the diaphragmatic margin on the left side is again noted. There are some air bronchograms in the perihilar and infrahilar region as before. The left lung shows some minor atelectatic changes perihilar region in the base due to excretory phase. No pneumothorax. No right effusion. No other change. Impression: 1. No pneumothorax or new finding in the left chest after transthoracic core needle biopsy of pleural thickening. Circumferential left pleural thickening. Hypoinflated upon request for expiratory study. Right lung clear. No new finding. Signed by Trip Cruz MD 12/20/2016 05:52 P
--- NOTE | 2016-12-20 15:53 | REP ---
CT GUIDED LEFT PLEURAL BIOPSY: The procedure was performed under the direct supervision of Dr. Cruz. The patient has a history of extensive irregular pleural thickening involving the entire left hemithorax seen on a previous CT scan dated 12/18/2016. The risks and benefits of the procedure were explained to the patient and informed consent was obtained. The left pleura was localized using CT guidance. The skin was prepped and draped in a sterile fashion. 1% lidocaine was used as a local anesthetic. Using CT guidance, a 19/20-gauge coaxial needle biopsy system was inserted and advanced into the pleura. Three core biopsy samples were obtained and sent to the lab. The patient tolerated the procedure well and there were no immediate complications. Reviewed by HOLLAND Rosado 12/20/2016 04:46 PEdited and Signed by Trip Cruz MD 12/20/2016 05:45 P
[2016-12-20] MEDS: LevoFLOXacin IV 500 MG in APPROPRIATE DILUENT 1 EA IV SCH (20:36)
[2016-12-20] MEDS: SIMVASTATIN 10 MG TAB PO SCH (20:36)
[2016-12-21] VITALS: BP 118/70
[2016-12-21 04:00] VITALS: BP 126/77
[2016-12-21 05:20] LABS: ANION GAP 9 MEQ/L (8-16); BLOOD UREA NITROGEN 19 MG/DL (7-18); CALCIUM LEVEL 8.6 MG/DL (8.8-10.2); CARBON DIOXIDE LEVEL 28 MEQ/L (21-32); CHLORIDE LEVEL 95 MEQ/L (98-107); CREATININE FOR GFR 1.14 MG/DL (0.70-1.30); GLOMERULAR FILTRATION RATE > 60.0 (>35); GLUCOSE, FASTING 138 MG/DL (83-110); MAGNESIUM LEVEL 1.9 MG/DL (1.8-2.4); POTASSIUM SERUM 4.8 MEQ/L (3.5-5.1); SODIUM LEVEL 132 MEQ/L (136-145)
[2016-12-21 05:22] LABS: MEAN CORPUSCULAR HEMOGLOBIN 27.1 pg (27.0-33.0); MEAN CORPUSCULAR HGB CONC 32.1 g/dl (32.0-36.5); MEAN CORPUSCULAR VOLUME 84.6 fl (80.0-96.0); RED CELL DISTRIBUTION WIDTH 14.4 % (11.5-14.5)
[2016-12-21] MEDS: HumaLOG INSULIN (NovoLOG) PER UNIT SC SCH (07:30)
[2016-12-21] MEDS: IPRATROPIUM 0.5MG/ALBUTEROL 2.5MG INH SOL UD 3ML (DUONEB)(J7620) NEB SCH (07:46)
[2016-12-21] MEDS: ADVAIR DISKUS 250/50 INH PWD INH SCH (07:46)
[2016-12-21 08:00] VITALS: BP 99/69
[2016-12-21] MEDS: OMEPRAZOLE 20 MG CAP PO SCH (08:18)
[2016-12-21] MEDS: MULTIVITAMINS/MINERALS THERAP 1 TAB PO SCH (08:18)
[2016-12-21] MEDS: ENOXAPARIN 30 MG/0.3 ML SYR (J1650) SC SCH (08:18)
[2016-12-21] MEDS: TAMSULOSIN 0.4 MG CAP PO SCH (08:18)
[2016-12-21] MEDS: FERROUS SULFATE 325MG TAB PO SCH (08:18)
[2016-12-21] MEDS: MIDODRINE 5 MG TAB PO SCH (08:19)
[2016-12-21] MEDS: DOCUSATE SODIUM 100 MG CAP PO SCH (08:19)
[2016-12-21] MEDS: FAMOTIDINE 20 MG TAB PO SCH (08:20)
[2016-12-21] MEDS: ASPIRIN 81 MG ENTERIC TAB PO SCH (08:20)
[2016-12-21] MEDS: FEXOFENADINE 60 MG TAB PO SCH (08:25)
--- NOTE | 2016-12-21 09:58 | DSES ---
DATE OF ADMISSION: 12/18/2016 DATE OF DISCHARGE: PRIMARY CARE PROVIDER: Modesta Parks PA-C ATTENDING TODAY: Dr Toro Rose. HISTORY: This is an 86-year-old male patient who I follow with in the outpatient setting who has a history of significant restricted lung impairment, nonfunctional hemidiaphragm, congestive heart failure who presented to [facility] emergency room with worsening shortness of breath, cough, left arm pain, left-sided back pain underneath the left shoulder blade. He was admitted to the hospital for chest pain and serial enzymes by hospitalist. During his hospitalization, he has remained medically stable. His chest pain and back pain have resolved. His cardiac enzymes are unremarkable. His EKG has also been unremarkable. Secondary to extensive pleural thickening, Dr. Shearer was consulted. He felt as though this area was biopsy appropriate and arranged for him to have a CT-guided needle biopsy, which the patient agreed to for that second pleura. Pathology of this is pending. I have spoken with Dr. Shearer as well as the patient in regards to this case. The patient understands that despite the results of this, there is unlikely any opportunity for improvement in his respiratory function and capacity, which he is continually alarmed and concerned about. He again asked me today why we are not draining the pleural effusion that he has present. I again explained to him as I have multiple times in the previous and recent past that his lung is entrapped and removing the fluid will only lead to reaccumulation and will not improve his lung function. He again, expresses understanding. He does need continual reassurance. DISCHARGE DIAGNOSES: Restrictive lung disease. 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 Chronic obstructive pulmonary disease. Chronic dyspnea. Chronic diastolic congestive heart failure. Coronary artery disease. DISCHARGE MEDICATIONS: - aspirin 81 mg daily - CoQ10 100 mg by mouth daily - ferrous sulfate 325 mg by mouth twice a day - Summer 180 mg daily - glipizide 2.5 mg by mouth daily - glucosamine one tablet daily - meloxicam 15 mg daily - metformin 1000 mg by mouth twice a day - midodrine 10 mg by mouth three times a day - multivitamin one tablet daily - omeprazole 20 mg by mouth twice a day - ranitidine 1 mg by mouth daily - Restasis eye drops twice daily - Advair discus 250/50 inhaled twice a day - simvastatin 10 mg by mouth nightly - spironolactone 12.5 mg by mouth daily - Flomax 0.4 mg by mouth daily - zinc 50 mg by mouth daily - Tylenol PM, two tablets as needed before bed for sleep. Discharge plan will be to followup with me in one week. Followup with Dr. Shearer in one week. Activities should be as tolerated. Diet should be no added salt.
--- NOTE | 2016-12-21 22:20 | ECGEPIP ---
Stationary ECG Study [facility] [place] Test Date: 2016-12-20 Pat Name: TURNER JERONIMO Department: Room: [place] [address] Gender: M [employer] Linguist: MICHELE : 1930 Requested By: Toro Rose Order Number: [id number] Reading MD: Tej Le Measurements Intervals [place] Rate: 99 P: MI: 0 QRS: -36 QRSD: 92 T: 20 QT: 325 QTc: 418 Interpretive Statements Atrial fibrillation with controlled ventricular response Low QRS complex voltage in the limb leads Left axis deviation and incomplete right bundle branch block Nonspecific ST-T wave abnormalities Compared to prior tracing of 12/18/2016, atrial fibrillation persists and anterolateral ST elevation has resolved Electronically Signed On 12-21-2016 22:20:40 EDT by Tej Le
== END 2016-12-21 10:52 | disposition home or self-care (01) | DRG 187 ==
LOC: M ED 15:28 → M ED INP 18:32 → M ICU 21:50
PROVIDERS: ADMIT Hospitalist; ATTEND Family Medicine
PROC: 0BBP3ZX Excision of Left Pleura, Percutaneous Approach, Diagnostic (ICD-10-PCS; principal; 2016-12-20)
DX: J90 Pleural effusion, not elsewhere classified (principal); E87.1 Hypo-osmolality and hyponatremia; J44.1 Chronic obstructive pulmonary disease with (acute) exacerbation; I50.32 Chronic diastolic (congestive) heart failure; E87.0 Hyperosmolality and hypernatremia; Z79.82 Long term (current) use of aspirin; Z79.899 Other long term (current) drug therapy; Z66 Do not resuscitate; E11.9 Type 2 diabetes mellitus without complications; I25.10 Atherosclerotic heart disease of native coronary artery without angina pectoris; J98.6 Disorders of diaphragm; I11.0 Hypertensive heart disease with heart failure; K21.9 Gastro-esophageal reflux disease without esophagitis; Z85.46 Personal history of malignant neoplasm of prostate; E87.5 Hyperkalemia; E83.42 Hypomagnesemia; D64.9 Anemia, unspecified